=== PATIENT | female | born 1945 | race Caucasian/White ===

== ENCOUNTER → 2018-05-05 | Outpatient (CLI) | payer MEDICARE, OTHER ==
[~2018-05-05] MED LIST: ALEVE220 MG PO; ASPIR 8181 MG PO; BENTYL10 MG PO; CRESTOR20 MG PO; Calcium PO; EVISTA PO; EXCEDRIN CAPLE1 EACH PO; FLONASE 0.05%50 MCG NASAL; IBUPROFEN 200200 M1 PO; METFORMIN HCL500 MG PO; PROAIR HFA8.5 GM INH; VITAMIN D32000 UNIT PO; VOLTAREN GEL 1100 G2; ZANTAC 150MG T150 MG PO; ZESTORETIC 20-1 EAC3 PO; ZOLOFT100 MG PO
== END ==
LOC: M.RAD 15:10
DX: M47.816 Spondylosis without myelopathy or radiculopathy, lumbar region (principal); M47.814 Spondylosis without myelopathy or radiculopathy, thoracic region; M41.86 Other forms of scoliosis, lumbar region; M51.36 Other intervertebral disc degeneration, lumbar region; I70.0 Atherosclerosis of aorta; I10 Essential (primary) hypertension; E11.9 Type 2 diabetes mellitus without complications

== ENCOUNTER 2019-01-01 23:55 | Emergency (ER) | payer MEDICARE, OTHER ==
[~2019-01-01] VITALS: Ht 160 cm; Wt 101.6 kg
[2019-01-02 00:02] VITALS: BP 156/70
[2019-01-02] MEDS ORDERED: CRESTOR40 MG PO (00:10)
== END 2019-01-02 00:42 | disposition home or self-care (01) ==
LOC: M.ERS 23:55
DX: K64.4 Residual hemorrhoidal skin tags (principal); I10 Essential (primary) hypertension; E11.9 Type 2 diabetes mellitus without complications; Z85.3 Personal history of malignant neoplasm of breast; Z90.12 Acquired absence of left breast and nipple

== ENCOUNTER → 2019-05-12 | Outpatient (CLI) | payer MEDICARE, OTHER ==
[~2019-05-12] MED LIST changes: +CRESTOR40 MG PO
== END ==
LOC: M.RAD 11:28
DX: J98.4 Other disorders of lung (principal); R05 Cough; G47.30 Sleep apnea, unspecified; I10 Essential (primary) hypertension; E11.9 Type 2 diabetes mellitus without complications

== ENCOUNTER → 2020-08-15 | Outpatient (CLI) | payer OTHER | LOC: M.LAB 08:29 | PROVIDERS: ATTEND Orthopaedic Surgery | DX: Z01.812 Encounter for preprocedural laboratory examination (principal); Z20.828 Contact with and (suspected) exposure to other viral communicable diseases; M65.4 Radial styloid tenosynovitis [de Quervain] ==

== ENCOUNTER → 2020-08-20 | Outpatient (CLI) | payer OTHER | LOC: M.LAB 05:37 | PROVIDERS: ATTEND Anesthesiology | DX: E87.6 Hypokalemia (principal) ==

== ENCOUNTER → 2021-02-07 | Outpatient (CLI) | payer OTHER | LOC: M.RAD 13:27 | PROVIDERS: ATTEND Family Medicine | DX: M25.512 Pain in left shoulder (principal) ==